=== PATIENT | female | born 1995 | race Two or more races ===

== ENCOUNTER 2018-04-06 10:36 | Emergency (ER) | payer MEDICAID ==
[~2018-04-06] VITALS: Ht 157.5 cm; Wt 59.0 kg
--- NOTE | 2018-04-06 11:16 | NUR ---
Patient left without being seen by ER Physician
[2018-05-10 09:14] VITALS: BP 137/73
== END 2018-04-06 11:16 | disposition home or self-care (01) ==
LOC: ER 10:39
DX: H57.12 Ocular pain, left eye (principal)
CPT/HCPCS: 99281; A4606; Z7502

== ENCOUNTER 2018-04-13 11:47 | Emergency (ER) | payer MEDICAID ==
[~2018-04-13] VITALS: Ht 157.5 cm; Wt 59.0 kg
--- NOTE | 2018-04-13 12:01 | NUR ---
BIB SELF W C/O OF RINGING OF EARS X 5 MONTHS AND ITCHING OF VAGINAL AND FEET AREA X 2 DAYS, TO ER BED 16, VSS, AWAITING MD ARREGUIN
--- NOTE | 2018-04-13 12:06 | NUR ---
DR TOVAR AT BEDSIDE
[2018-04-13 12:59] LABS: APPEARANCE,URINE Clear (CLEAR); BILIRUBIN,URINE Negative (NEGATIVE); BLOOD, URINE Negative Ery/uL (NEGATIVE); COLOR,URINE Yellow (YELLOW); KETONES,URINE Trace (NEGATIVE); LEUKOCYTE ESTERASE ,URINE Trace (NEGATIVE); NITRITE, URINE Positive (NEGATIVE); PH,URINE 8.5 (5.0-8.0); PROTEIN,URINE Negative (NEGATIVE); UGLUCOSE Negative (NEGATIVE); UROBILINOGEN,URINE 0.2 EU/dL (0.2)
[2018-04-13 13:00] LABS: BACTERIA,URINE 2+ /HPF (None Seen); RBC,URINE NONE SEEN /HPF (0-2); SQUAMOUS EPITHELIAL CELL,UR Few /HPF (None Seen)
[2018-04-13 13:30] VITALS: BP 116/72
== END 2018-04-13 13:46 | disposition home or self-care (01) ==
LOC: ER 11:48
DX: N39.0 Urinary tract infection, site not specified (principal); B37.3 Candidiasis of vulva and vagina; B35.3 Tinea pedis
CPT/HCPCS: 81001; 84703; 87077; 87086; 87186; 87491; 87591; 99283; A4606; 81000-TC